=== PATIENT | female | born 1995 | race Caucasian/White ===

== ENCOUNTER 2016-12-07 11:05 | Inpatient (IN) | payer BC, OTHER ==
[~2016-12-07] VITALS: Ht 167.6 cm; Wt 134.2 kg
[~2016-12-07 11:05] MED LIST: MULT20CH PO; NCDT14 TD; ONDA4TAB46 PO
--- NOTE | 2016-12-07 11:27 | EMERGENCY ROOM VISIT NOTE ---
History Report prepared by Griselda: Ana Barajas Under the Supervision of: Dr. Chuy Espinosa M.D. First contact with patient: 11:23 Chief Complaint: FLU LIKE SX Stated Complaint: FEVER,COUGH,VOMITTING,RIB PAIN FROM COUGHING History of Present Illness The patient is a 21 year old female who presents to the Emergency Room with complaints of worsening flu like symptoms beginning 2 days prior to arrival. The patient states that 2 days ago she developed a cough. Yesterday the patient began to experience nausea, vomiting and fever. She also note an aching pain to her ribs. The patient last night developed discharge from her eyes bilaterally. She has been using her rescue inhaler. The patient denies diabetes history or swelling to lower extremities. The patient has a history of asthma and high blood pressure. Source of History: patient Onset: 2 days OFFICE DIRECTOR Position: other (global) Quality: other (flu like symptoms) Timing: worsening Associated Symptoms: + fevers, + cough, + nausea, + vomiting Note: The patient is experiencing aching pain to ribs and discharge from bilateral eyes. Review of Systems See HPI for pertinent positives & negatives. A total of 10 systems reviewed and were otherwise negative. Past Medical & Surgical Medical Problems: (1) Morbid obesity (2) Oligohydramnios antepartum (3) labor Family History Patient reports no known family medical history. Social History Smoking Status: Current Every Day Smoker Marital Status: single Occupation Status: employed Current/Historical Medications Scheduled Multiple Vitamins W/ Minerals (Adult One Daily Gummies), 1 TAB PO DAILY Scheduled PRN Albuterol Sulfate (Proair Respiclick), 1 PUFF INH DAILY PRN for Shortness of Breath Allergies Coded Allergies: Amoxicillin (Verified Allergy, Intermediate, RASH, 12/07/16) Physical Exam Vital Signs Date Time Temp Pulse Resp B/P (MAP) Pulse Ox O2 Delivery O2 Flow Rate FiO2 12/07/16 15:10 84 15 94 12/07/16 15:00 122/66 12/07/16 14:40 80 26 94 12/07/16 14:30 98/51 12/07/16 14:14 109/51 12/07/16 14:10 76 25 92 12/07/16 14:05 79 25 90 12/07/16 13:35 78 22 95 12/07/16 13:34 90 Room Air 12/07/16 13:34 95 Nasal Cannula 2.0 12/07/16 13:33 80 24 90/51 95 Nasal Cannula 2.0 12/07/16 13:31 80 12/07/16 13:27 90/51 12/07/16 13:00 36.6 94 22 84/64 91 12/07/16 11:09 36.8 109 18 136/87 96 Room Air Physical Exam GENERAL: Patient is uncomfortable appearing and in mild distress. HEENT: No acute trauma, normocephalic atraumatic, mucous membranes moist, nasal congestion, running noise, horse voice, no scleral icterus, conjunctivitis. NECK: No stridor, no adenopathy, no meningismus, trachea is midline. LUNGS: Mild wheezing throughout although good breath sounds bilaterally. HEART: Regular rate and rhythm. No murmurs, rubs, gallops appreciated. ABDOMEN: Soft, nontender, bowel sounds positive, no masses appreciated, no peritonitis. BACK: No midline tenderness, no CVA tenderness EXTREMITIES: Normal motion all extremities, no cyanosis, no edema. NEUROLOGIC: Alert and oriented, no acute motor or sensory deficits, no focal weakness, cranial nerves grossly intact. SKIN: No rash, no jaundice, no diaphoresis. Medical Decision & Procedures ER Provider Diagnostic Interpretation: X ray results are stated below per my interpretation and the radiologist's interpretation. CHEST ONE VIEW PORTABLE CLINICAL HISTORY: cough, chills dyspnea COMPARISON STUDY: 11/02/2010 FINDINGS: Minimal parenchymal infiltrate left base. Lungs otherwise appear clear. Diaphragms smooth. IMPRESSION: Minimal parenchymal infiltrate left lower lobe Electronically signed by: Ricardo Mejia M.D. 12/07/2016 12:04 PM Dictated Date/Time: 12/07/2016 12:04 PM Laboratory Results 12/07/16 12:05 Red Blood Count 4.42, Mean Corpuscular Volume 92.1, Mean Corpuscular Hemoglobin 31.2, Mean Corpuscular Hemoglobin Concent 33.9, Mean Platelet Volume 9.9, Neutrophils (%) (Auto) 64.6, Lymphocytes (%) (Auto) 22.3, Monocytes (%) (Auto) 12.3, Eosinophils (%) (Auto) 0.5, Basophils (%) (Auto) 0.2, Neutrophils # (Auto ) 5.22, Lymphocytes # (Auto) 1.81, Monocytes # (Auto) 1.00, Eosinophils # (Auto ) 0.04, Basophils # (Auto) 0.02 12/07/16 12:05 Test 12/07/16 12:05 12/07/16 15:18 White Blood Count 8.10 K/uL (4.8-10.8) Red Blood Count 4.42 M/uL (4.2-5.4) Hemoglobin 13.8 g/dL (12.0-16.0) Hematocrit 40.7 % (37-47) Mean Corpuscular Volume 92.1 fL (80-100) Mean Corpuscular Hemoglobin 31.2 pg (25-34) Mean Corpuscular Hemoglobin Concent 33.9 g/dl (32-36) Platelet Count 212 K/uL (130-400) Mean Platelet Volume 9.9 fL (7.4-10.4) Neutrophils (%) (Auto) 64.6 % Lymphocytes (%) (Auto) 22.3 % Monocytes (%) (Auto) 12.3 % Eosinophils (%) (Auto) 0.5 % Basophils (%) (Auto) 0.2 % Neutrophils # (Auto) 5.22 K/uL (1.4-6.5) Lymphocytes # (Auto) 1.81 K/uL (1.2-3.4) Monocytes # (Auto) 1.00 K/uL (0.11-0.59) Eosinophils # (Auto) 0.04 K/uL (0-0.5) Basophils # (Auto) 0.02 K/uL (0-0.2) RDW Standard Deviation 44.7 fL (36.4-46.3) RDW Coefficient of Variation 13.4 % (11.5-14.5) Immature Granulocyte % (Auto) 0.1 % Immature Granulocyte # (Auto) 0.01 K/uL (0.00-0.02) Anion Gap 9.0 mmol/L (3-11) Est Creatinine Clear Calc Drug Dose 156.5 ml/min Estimated GFR () 120.4 Estimated GFR (Non- 103.9 BUN/Creatinine Ratio 11.9 (10-20) Calcium Level 8.8 mg/dl (8.5-10.1) Total Bilirubin 0.5 mg/dl (0.2-1) Aspartate Amino Transf (AST/SGOT) 12 U/L (15-37) Alanine Aminotransferase (ALT/SGPT) 19 U/L (12-78) Alkaline Phosphatase 83 U/L (45-117) Total Protein 7.7 gm/dl (6.4-8.2) Albumin 3.9 gm/dl (3.4-5.0) Globulin 3.8 gm/dl (2.5-4.0) Albumin/Globulin Ratio 1.0 (0.9-2) Laboratory results as reviewed by me. Medications Administered Medications (Trade) Dose Ordered Sig/Dung Route Start Time Stop Time Status Last Admin Dose Admin Dexamethasone Sodium Phosphate (Decadron Inj) 10 mg NOW ONCE IV 12/07/16 11:30 12/07/16 11:31 DC 12/07/16 11:48 10 MG Hydrocodone Bit/ Homatropine Methylb (Hycodan Syrup) 5 ml NOW STAT PO 12/07/16 11:28 12/07/16 11:30 DC 12/07/16 11:47 5 ML Diphenhydramine HCl (Benadryl Inj) 50 mg NOW STAT IV 12/07/16 11:28 12/07/16 11:30 DC 12/07/16 11:45 50 MG Ketorolac Tromethamine (Toradol Inj) 30 mg NOW STAT IV 12/07/16 11:28 12/07/16 11:30 DC 12/07/16 11:46 30 MG Ondansetron HCl (Zofran Inj) 4 mg NOW STAT IV 12/07/16 11:28 12/07/16 11:31 DC 12/07/16 11:47 4 MG Sodium Chloride 1,000 ml @ 999 mls/hr Q1H1M STAT IV 12/07/16 11:28 12/07/16 12:28 DC 12/07/16 11:47 999 MLS/HR Sodium Chloride 2,000 ml @ 999 mls/hr Q2H1M STAT IV 12/07/16 13:12 12/07/16 15:12 DC 12/07/16 13:32 999 MLS/HR Levofloxacin (Levaquin / D5W) 750 mg NOW STAT IV 12/07/16 13:15 12/07/16 13:16 DC 12/07/16 13:50 750 MG Aztreonam 2000 mg/ Dextrose 110 ml @ 100 mls/hr NOW STAT IV 12/07/16 13:15 12/07/16 14:20 DC 12/07/16 14:19 100 MLS/HR ED Course 1124: The patient was evaluated in room C4. A complete history and physical exam was performed. 1128: Sodium Chloride 1,000 ml @ 999 mls/hr IV, Zofran Inj 4 mg IV, Toradol Inj 30 mg IV, Benadryl Inj 50 mg IV, Hycodan Syrup 5 ml PO, Decadron Inj 10 mg IV. 1313: The patient is now hypotensive on repeat blood pressure. 1315: Aztreonam 2,000 mg/ Dextrose 110 ml @ 100 mls/hr IV, Levaquin / D5W 750 mg IV. 1317: I asked nurse to obtain 2 IVs and give another liter of fluids. 1442: Discussed the patient's case with Dr. Coleen Cabezas [facility] [place]. The patient will be evaluated for further treatment and disposition. 1450: Upon reevaluation, the patient is hemodynamically stable. Discussed results and treatment plan with the patient. She verbalized understanding and agreement with the treatment plan. The patient will be evaluated for further management. Medical Decision Differential: Viral, Pharyngitis, Cellulitis, Pneumonia, Influenza, Meningitis, Sepsis, Bacteremia, UTI/Pyelonephritis, Endocrine, Toxicologic, amongst other pathologies entertained. Medication Reconciliation: I attest that I have personally reviewed the patient 's current medication list. Blood pressure screening: Patient was found to have mildly elevated blood pressure and was referred to their primary doctor for recheck and further treatment. Pleasant 21 yr old female arrives with generalized illness including respiratory , HEENT, and vomiting. Wheezing throughout, dehydrated and uncomfortable appearing. Given IV fluids, cough meds, nausea meds, steroids and nebulizer. CXR with LLL infiltrate. Feeling a bit better though BP starting to drop. Multiple repeat BPs confirm that she is hypotensive in 80s. O2 sats in low 90s. Blood cultures obtained, 2 IVs obtained. Lactic Acid looks good. Given Further 2 L NSS bolus along with empiric broad spectrum abx Levaquin and Aztreonam. BP mildly improved though I do not feel she is safe for discharge. Requested hospitalist evaluate patient for further work-up and treatment. Consults Time Called: 1440 Consulting Physician: Dr. Horne - [facility] [place] Returned Call: [phone] Discussed the patient's case. The patient will be evaluated for further treatment and disposition. Impression Primary Impression: Pneumonia Additional Impressions: Sepsis Hypotension Scribe Attestation The scribe's documentation has been prepared under my direction and personally reviewed by me in its entirety. I confirm that the note above accurately reflects all work, treatment, procedures, and medical decision making performed by me. Departure Information Dispostion Being Evaluated By Hospitalist Referrals No Doctor, Assigned (PCP) Problem Qualifiers
[2016-12-07] MEDS ORDERED: HYDROCODONE/HOMATROPINE SYRUP 5MG/1.5MG 5ML UDP PO STA (11:28)
[2016-12-07] MEDS ORDERED: ONDANSETRON INJ 2 MG/ML 2 ML VIAL IV STA (11:28)
[2016-12-07] MEDS ORDERED: DiphenhydrAMINE HCL 50 MG/ML VIAL IV STA (11:28)
[2016-12-07] MEDS ORDERED: SODIUM CHLORIDE 0.9% 1000ML 1,000 ML IV STA (11:28)
[2016-12-07] MEDS ORDERED: KETOROLAC TROMETHAMINE 30 MG/ML VIAL IV STA (11:28)
[2016-12-07] MEDS ORDERED: DEXAMETHASONE SOD INJ 10 MG/ML VIAL IV ONE (11:30)
[2016-12-07] MEDS ORDERED: ALBU18002 INH (12:04)
--- NOTE | 2016-12-07 12:06 | DIAGNOSTIC IMAGING REPORT ---
CHEST ONE VIEW PORTABLE CLINICAL HISTORY: cough, chills dyspnea COMPARISON STUDY: 11/02/2010 FINDINGS: Minimal parenchymal infiltrate left base. Lungs otherwise appear clear. Diaphragms smooth. IMPRESSION: Minimal parenchymal infiltrate left lower lobe Electronically signed by: Ricardo Mejia M.D. 12/07/2016 12:04 PM Dictated Date/Time: 12/07/2016 12:04 PM
[2016-12-07 12:51] LABS: BASO % 0.2 %; BASO ABS # 0.02 K/uL (0-0.2); COMPLETE YES; EOS % 0.5 %; HEMATOCRIT 40.7 % (37-47); IG% 0.1 %; LYMPH % 22.3 %; LYMPH ABS # 1.81 K/uL (1.2-3.4); MEAN CELL VOLUME 92.1 fL (80-100); MEAN CORPUSCULAR HEMOGLOBIN 31.2 pg (25-34); MEAN CORPUSCULAR HGB CONC 33.9 g/dl (32-36); MEAN PLATELET VOLUME 9.9 fL (7.4-10.4); MONO % 12.3 %; NEUT % 64.6 %; PLATELET COUNT 212 K/uL (130-400); RED BLOOD COUNT 4.42 M/uL (4.2-5.4)
[2016-12-07 13:10] LABS: BUN/CREATININE RATIO 11.9 (10-20); CALCIUM 8.8 mg/dl (8.5-10.1); CREATININE 0.8 mg/dl (0.60-1.20)
[2016-12-07] MEDS ORDERED: SODIUM CHLORIDE 0.9% 1000ML 2,000 ML IV STA (13:12)
[2016-12-07] MEDS ORDERED: AZTREONAM IV 2,000 MG in DEXTROSE 5% 100ML 100 ML IV STA (13:15)
[2016-12-07] MEDS ORDERED: LEVAQUIN 750MG / 150ML D5W IV STA (13:15)
[2016-12-07] MEDS ORDERED: TOBRAMYCIN SULF INJ 0 MG in DEXTROSE 5% 100ML 100 ML IV STA (15:18)
[2016-12-07] MEDS ORDERED: MAGNESIUM HYDROXIDE SUSP 30 ML UDC PO PRN (15:30)
[2016-12-07] MEDS ORDERED: ALUMINUM/MAGNESIUM/SIMETH (MAALOX MAX) 30 ML UDC PO PRN (15:30)
[2016-12-07] MEDS ORDERED: ALBUTEROL HFA 8 GM INHALER INH PRN (15:30)
[2016-12-07] MEDS ORDERED: ONDANSETRON INJ 2 MG/ML 2 ML VIAL IV PRN (15:30)
[2016-12-07] MEDS ORDERED: ACETAMINOPHEN 325 MG TAB PO PRN (15:30)
--- NOTE | 2016-12-07 15:39 | History and Physical ---
History & Physical Date & Time of Service: Dec 07, 2016 at 15:34 Chief Complaint: Fever,Cough,Vomitting,Rib Pain From Coughing Primary Care Physician: [facility] History of Present Illness Source: patient 21F with a PMHx of smoking (1 pack per day x 7 years) p/w severe cough x 2 days. Pt reports that her symptoms started with a sore throat 5 days ago and now she has sputum with increased SOB. She also has been vomiting and having diarrhea yesterday. The vomit is not related to coughing. She lives with her step dad, mom, sister and two children. She states that her mom is also having diarrhea and her sister is feeling sick today as well. She has been using her inhaler very regularly over the past two days without improvement. ROS: +feeling hot +diarrhea +cough +eating less , no abdo pain, +ear feels stuffy PMHx: Asthma PSHx: None Allergies: NKDA Meds: Albuterol SHx: two kids, lives in a trailer with air conditioning, with step mom, mom, sister and two children ages 1 and 3. Regular diet. Family History Patient reports no known family medical history. Social History Smoking Status: Current Every Day Smoker Marital Status: single Housing status: lives with family Occupational Status: employed Multi-Drug Resistant Organisms History of MDRO: No Allergies Coded Allergies: Amoxicillin (Verified Allergy, Intermediate, RASH, 12/07/16) Home Medications Scheduled Multiple Vitamins W/ Minerals (Adult One Daily Gummies), 1 TAB PO DAILY Scheduled PRN Albuterol Sulfate (Proair Respiclick), 1 PUFF INH DAILY PRN for Shortness of Breath Physical Exam Vital Signs Date Time Temp Pulse Resp B/P (MAP) Pulse Ox O2 Delivery O2 Flow Rate FiO2 12/07/16 15:10 84 15 94 12/07/16 15:00 122/66 12/07/16 14:40 80 26 94 12/07/16 14:30 98/51 12/07/16 14:14 109/51 12/07/16 14:10 76 25 92 12/07/16 14:05 79 25 90 12/07/16 13:35 78 22 95 12/07/16 13:34 90 Room Air 12/07/16 13:34 95 Nasal Cannula 2.0 12/07/16 13:33 80 24 90/51 95 Nasal Cannula 2.0 12/07/16 13:31 80 12/07/16 13:27 90/51 12/07/16 13:00 36.6 94 22 84/64 91 12/07/16 11:09 36.8 109 18 136/87 96 Room Air General Appearance: WD/WN, + obese, + pertinent finding (pt is wearing oxygen) Respiratory/Chest: chest non-tender, no respiratory distress, no accessory muscle use, + pertinent finding (wheezing in the upper lung field bilaterally, crackles in the LLL. ) Cardiovascular: no edema, no gallop, no JVD, no murmur, normal peripheral pulses Abdomen/GI: non tender, soft, no organomegaly, no pulsatile mass Extremities/Musculoskelatal: normal inspection, no calf tenderness, normal capillary refill, no pedal edema, normal range of motion Neurologic/Psych: normal mood/affect, normal reflexes, oriented x 3 Skin: no rash Diagnostics Laboratory Results Results Past 24 Hours Test 12/07/16 12:05 12/07/16 15:18 Range/Units White Blood Count 8.10 4.8-10.8 K/uL Red Blood Count 4.42 4.2-5.4 M/uL Hemoglobin 13.8 12.0-16.0 g/dL Hematocrit 40.7 37-47 % Mean Corpuscular Volume 92.1 80-100 fL Mean Corpuscular Hemoglobin 31.2 25-34 pg Mean Corpuscular Hemoglobin Concent 33.9 32-36 g/dl Platelet Count 212 130-400 K/uL Mean Platelet Volume 9.9 7.4-10.4 fL Neutrophils (%) (Auto) 64.6 % Lymphocytes (%) (Auto) 22.3 % Monocytes (%) (Auto) 12.3 % Eosinophils (%) (Auto) 0.5 % Basophils (%) (Auto) 0.2 % Neutrophils # (Auto) 5.22 1.4-6.5 K/uL Lymphocytes # (Auto) 1.81 1.2-3.4 K/uL Monocytes # (Auto) 1.00 0.11-0.59 K/uL Eosinophils # (Auto) 0.04 0-0.5 K/uL Basophils # (Auto) 0.02 0-0.2 K/uL RDW Standard Deviation 44.7 36.4-46.3 fL RDW Coefficient of Variation 13.4 11.5-14.5 % Immature Granulocyte % (Auto) 0.1 % Immature Granulocyte # (Auto) 0.01 0.00-0.02 K/uL Sodium Level 141 136-145 mmol/L Potassium Level 3.0 3.5-5.1 mmol/L Chloride Level 106 98-107 mmol/L Carbon Dioxide Level 26 21-32 mmol/L Anion Gap 9.0 3-11 mmol/L Blood Urea Nitrogen 10 7-18 mg/dl Creatinine 0.80 0.60-1.20 mg/dl Est Creatinine Clear Calc Drug Dose 156.5 ml/min Estimated GFR () 120.4 Estimated GFR (Non- 103.9 BUN/Creatinine Ratio 11.9 10-20 Random Glucose 104 70-99 mg/dl Calcium Level 8.8 8.5-10.1 mg/dl Total Bilirubin 0.5 0.2-1 mg/dl Aspartate Amino Transf (AST/SGOT) 12 15-37 U/L Alanine Aminotransferase (ALT/SGPT) 19 12-78 U/L Alkaline Phosphatase 83 45-117 U/L Total Protein 7.7 6.4-8.2 gm/dl Albumin 3.9 3.4-5.0 gm/dl Globulin 3.8 2.5-4.0 gm/dl Albumin/Globulin Ratio 1.0 0.9-2 Microbiology Results 12/07/16 Blood Culture, Received Pending 12/07/16 Blood Culture, Received Pending Diagnostic Radiology CHEST ONE VIEW PORTABLE CLINICAL HISTORY: cough, chills dyspnea COMPARISON STUDY: 11/02/2010 FINDINGS: Minimal parenchymal infiltrate left base. Lungs otherwise appear clear. Diaphragms smooth. IMPRESSION: Minimal parenchymal infiltrate left lower lobe Impression Assessment and Plan 21F with a PMHx of Asthma and smoking presents with SOB. Chest x-ray showed LLL consolidation. Admitted for pneumonia. In the ER pt received NSS bolus of 1L, Zofran , Toradol 30mg IV, Benadryl IV 50mg IV, Hycodan syrup 5mL PO, and Decadron 10mg IV. LLL Pneumonia, unlikely septic, more likely dehydrated - Levofloxacin 750mg Q24H. - Ordered Lactate now and in 8 hours, follow up. - Follow up blood cultures. - CBC and BMP tomorrow AM. Acute Hypoxic Respiratory Failure 2/2 Asthma, likely a component of COPD - Wheezing on Exam. - Albuterol q4 prn for wheezing. - Duonebs q3H scheduled - Solu Medrol 40mg IV Q12 Diarrhea - Because other members in family have symptoms, lives in a trailer with , ordering Legionella urine Antigen screen. Hypotension NSS 125mls/hr +20meq as above Hypokalemia 10meq KCL given, IVF as above, BMP tomorrow morning. Continue to monitor. Smoking: Nicotine patch, smoking cessation consult. Dispo: Med Surg, full admit, reg diet. Code: Full I personally and independently interviewed and examined the patient I reviewed labs and imaging I agree with above mentioned physical exam, History and ROS I discussed and formulated the assessment and plan with Mrs. España 21-year-old female p/w LLLP ROS is negative except for cough/fever PE , obese , not in distress lungs decreased air entry/rhonchi left lung , Heart Soft systolic M Abd soft NT Ext no edema Neuro AAA X 3 moves all ext assessment: Left lower lobe pneumonia hypoxic respiratory failure, acute cough PCN allergy Plan: levofloxacin O2 supplement rapid flu [facility] [place] Hospitalist VTE Prophylaxis VTE Risk Assessment Done? Y/N: Yes Risk Level: Low Resident Involvement: Resident Care Provided Care Provided: Adult Hospital Medicine
--- NOTE | 2016-12-07 16:18 | Medical Student: [facility] ---
Med Student History & Physical Date & Time of Service: Dec 07, 2016 at 15:55 Chief Complaint: Fever,Cough,Vomitting,Rib Pain From Coughing Primary Care Physician: [facility] History of Present Illness Source: patient Ms. Grove is a 21yo female who presented to the ED with a three day history of illness. It began with a sore throat and has progressed to fever (max of 102), congestion with productive cough, nausea with significant vomiting (>10 episodes ), and diarrhea. She has been unable to eat or drink fluids. She has also been experiencing headaches, dizziness, and shortness of breath. Three of the six members of her household have also been sick, but not as severe as her. Past Medical/Surgical History Medical Problems: (1) Hypotension Status: Acute (2) Pneumonia Status: Acute (3) Sepsis Status: Acute Past medical history: HTN migraines asthma bipolar disorder depression Past surgical history: tonsils and adenoids removed Family History Grandfather: HTN Social History Smoking Status: Current Every Day Smoker (5-10 pack-year) Smokeless Tobacco Use: No Alcohol Use: none Marital Status: single Housing status: lives with family (mother, step-father, and two children) Occupational Status: employed (works at [email or web address]) Allergies Coded Allergies: Amoxicillin (Verified Allergy, Intermediate, RASH, 12/07/16) Medications Albuterol Sulfate (Proair Respiclick), 1 PUFF INH DAILY PRN for Shortness of Breath Multiple Vitamins W/ Minerals (Adult One Daily Gummies), 1 TAB PO DAILY Review of Systems Constitutional: + fever, + weakness, + fatigue Eyes: + discharge (right eye) ENT: + hearing loss (acute right ear hearing impairment (started with onset of current illness)) Respiratory: + cough, + sputum, + shortness of breath Cardiovascular: No chest pain, No edema Abdomen: + pain (abdominal pain from coughing ), + nausea, + vomiting, + diarrhea Musculoskeletal: + muscle pain Neurologic: No memory loss, No paralysis, No numbness/tingling, No vertigo Integumentary: No rash Physical Exam Vital Signs (24 Hours) Date Time Temp Pulse Resp B/P (MAP) Pulse Ox O2 Delivery O2 Flow Rate FiO2 12/07/16 15:10 84 15 94 12/07/16 15:00 122/66 12/07/16 14:40 80 26 94 12/07/16 14:30 98/51 12/07/16 14:14 109/51 12/07/16 14:10 76 25 92 12/07/16 14:05 79 25 90 12/07/16 13:35 78 22 95 12/07/16 13:34 90 Room Air 12/07/16 13:34 95 Nasal Cannula 2.0 12/07/16 13:33 80 24 90/51 95 Nasal Cannula 2.0 12/07/16 13:31 80 12/07/16 13:27 90/51 12/07/16 13:00 36.6 94 22 84/64 91 12/07/16 11:09 36.8 109 18 136/87 96 Room Air General Appearance: WD/WN, + obese Head: normocephalic, atraumatic Eyes: normal inspection, PERRL ENT: + nasal congestion, + TM dull (right TM opaque ) Neck: no adenopathy Respiratory/Chest: + crackles (left inferior lobe crackles) Cardiovascular: regular rate, rhythm, no edema Extremities/Musculoskelatal: normal inspection, normal capillary refill Neurologic/Psych: alert, normal mood/affect, oriented x 3 Skin: normal color, warm/dry, no rash Diagnostics Laboratory Results Results Past 24 Hours Test 12/07/16 12:05 12/07/16 15:18 Range/Units White Blood Count 8.10 4.8-10.8 K/uL Red Blood Count 4.42 4.2-5.4 M/uL Hemoglobin 13.8 12.0-16.0 g/dL Hematocrit 40.7 37-47 % Mean Corpuscular Volume 92.1 80-100 fL Mean Corpuscular Hemoglobin 31.2 25-34 pg Mean Corpuscular Hemoglobin Concent 33.9 32-36 g/dl Platelet Count 212 130-400 K/uL Mean Platelet Volume 9.9 7.4-10.4 fL Neutrophils (%) (Auto) 64.6 % Lymphocytes (%) (Auto) 22.3 % Monocytes (%) (Auto) 12.3 % Eosinophils (%) (Auto) 0.5 % Basophils (%) (Auto) 0.2 % Neutrophils # (Auto) 5.22 1.4-6.5 K/uL Lymphocytes # (Auto) 1.81 1.2-3.4 K/uL Monocytes # (Auto) 1.00 0.11-0.59 K/uL Eosinophils # (Auto) 0.04 0-0.5 K/uL Basophils # (Auto) 0.02 0-0.2 K/uL RDW Standard Deviation 44.7 36.4-46.3 fL RDW Coefficient of Variation 13.4 11.5-14.5 % Immature Granulocyte % (Auto) 0.1 % Immature Granulocyte # (Auto) 0.01 0.00-0.02 K/uL Sodium Level 141 136-145 mmol/L Potassium Level 3.0 3.5-5.1 mmol/L Chloride Level 106 98-107 mmol/L Carbon Dioxide Level 26 21-32 mmol/L Anion Gap 9.0 3-11 mmol/L Blood Urea Nitrogen 10 7-18 mg/dl Creatinine 0.80 0.60-1.20 mg/dl Est Creatinine Clear Calc Drug Dose 156.5 ml/min Estimated GFR () 120.4 Estimated GFR (Non- 103.9 BUN/Creatinine Ratio 11.9 10-20 Random Glucose 104 70-99 mg/dl Calcium Level 8.8 8.5-10.1 mg/dl Total Bilirubin 0.5 0.2-1 mg/dl Aspartate Amino Transf (AST/SGOT) 12 15-37 U/L Alanine Aminotransferase (ALT/SGPT) 19 12-78 U/L Alkaline Phosphatase 83 45-117 U/L Total Protein 7.7 6.4-8.2 gm/dl Albumin 3.9 3.4-5.0 gm/dl Globulin 3.8 2.5-4.0 gm/dl Albumin/Globulin Ratio 1.0 0.9-2 Microbiology Results 12/07/16 Blood Culture, Received Pending 12/07/16 Blood Culture, Received Pending Impression Assessment and Plan 21 yo female with asthma and 5-10 pack-year history of smoking presents with significant acute respiratory and GI distress; coupled with hypotension poses concern for sepsis. Left inferior lobe PNA CXR shows minimal parenchymal infiltrate left lower lobe. will collect sputum sample for culture and blood culture will start patient on the following Abxs: levaquin 750mg Q8H IV aztreonam 2000mg Q8H IV Asthma/hypoxia-- pulse ox dropped as low as 90% albuterol PRN methylprednisolone 40mg Q12H albuterol + ipratropium Q6H neb treatment Hypotension-- there was concerns for sepsis given respiratory infection and significant hypotension. At the time I saw the patient she had been in the ED for several hours and her BP readings had stabilized; she did not appear septic. Her hypotension can most likely be attributed to severe dehydration ( from diarrhea, vomiting, and lack of fluid intake). Hypokalemia-- most likely due to diarrhea. will start KCl IV DVT Prophylaxis enoxaparin (Lovenox) SQ Social Service Consult None Apply
[2016-12-07] MEDS ORDERED: POLYETHYLENE (MIRALAX) 17 GM PACK PO PRN (16:30)
[2016-12-07 16:36] VITALS: BP_SYST 124; BP_SYST 90; BP_DIAS 47; BP_DIAS 78; PULSE 76; TEMP 36.7; O2SAT 96
[2016-12-07] MEDS ORDERED: POTASSIUM CHLORIDE 10 MEQ TABCR PO ONE (17:30)
[2016-12-07 17:34] LABS: INR 1.1 (0.9-1.1); PROTHROMBIN TIME (PATIENT) 11.5 SECONDS (9.0-12.0)
[2016-12-07] MEDS: NSS + 20MEQ KCL 1000ML 1,000 ML IV SCH (17:59)
[2016-12-07] MEDS ORDERED: METHYLPREDNISOLONE IV 60 MG in SYRINGE 0 ML IV SCH (18:00)
[2016-12-07 18:43] VITALS: BP 124/78; PULSE 76; TEMP 36.7; O2SAT 96; Ht 167.6 cm; Wt 134.2 kg
[2016-12-07] MEDS: ALBUT/IPRATROP 3MG/0.5MG NEB 3 ML VIAL NEB SCH ×2 (19:28→23:21)
[2016-12-07] MEDS: FORMOTEROL FUMA NEBULIZER SOLN 20 MCG/2 ML VIAL INH SCH (19:28)
[2016-12-07 19:29] VITALS: PULSE 91; O2SAT 95
[2016-12-07] MEDS ORDERED: PNEUMOCOCCAL POLYSACCHARIDES 25 MCG/0.5 ML VIAL/SYR IM. ONE (21:00)
[2016-12-07] MEDS ORDERED: PNEUMOCOCCAL ADMINISTRATION CHARGE ONE (21:00)
[2016-12-07] MEDS: METHYLPREDNISOLONE IV 40 MG in SYRINGE 0 ML IV SCH (21:18)
[2016-12-07] MEDS ORDERED: AZTREONAM IV 2,000 MG in DEXTROSE 5% 100ML 100 ML IV SCH (22:00)
[2016-12-07] MEDS ORDERED: ENOXAPARIN 40 MG/0.4 ML SYR SQ SCH (22:00)
[2016-12-07 23:21] VITALS: PULSE 81; O2SAT 93
[2016-12-07 23:24] VITALS: BP 117/72; PULSE 81; TEMP 36.9; O2SAT 92
[2016-12-08] MEDS: NSS + 20MEQ KCL 1000ML 1,000 ML IV SCH ×3 (00:43→15:41)
[2016-12-08] MEDS: ALBUT/IPRATROP 3MG/0.5MG NEB 3 ML VIAL NEB SCH ×4 (01:41→19:42)
[2016-12-08 04:12] VITALS: BP 133/70; PULSE 72; TEMP 36.7; O2SAT 92
[2016-12-08 07:13] VITALS: BP 128/85; PULSE 71; TEMP 36.4; O2SAT 96
[2016-12-08 07:28] LABS: HEMATOCRIT 37.5 % (37-47); MEAN CELL VOLUME 91.7 fL (80-100); MEAN CORPUSCULAR HEMOGLOBIN 30.1 pg (25-34); MEAN CORPUSCULAR HGB CONC 32.8 g/dl (32-36); MEAN PLATELET VOLUME 9.9 fL (7.4-10.4); PLATELET COUNT 208 K/uL (130-400); RED BLOOD COUNT 4.09 M/uL (4.2-5.4)
[2016-12-08] MEDS: METHYLPREDNISOLONE IV 40 MG in SYRINGE 0 ML IV SCH (07:46)
[2016-12-08] MEDS: FORMOTEROL FUMA NEBULIZER SOLN 20 MCG/2 ML VIAL INH SCH ×2 (07:48→19:42)
[2016-12-08 07:49] VITALS: PULSE 75; O2SAT 95
[2016-12-08] MEDS ORDERED: NICOTINE 7 MG/24 HR TDSY TD SCH (08:00)
[2016-12-08 08:05] LABS: BLOOD UREA NITROGEN 7 mg/dl (7-18); BUN/CREATININE RATIO 16.7 (10-20); CARBON DIOXIDE 26 mmol/L (21-32); CHLORIDE 110 mmol/L (98-107); CREATININE 0.43 mg/dl (0.60-1.20); GLUCOSE 122 mg/dl (70-99); POTASSIUM 3.7 mmol/L (3.5-5.1); SODIUM 143 mmol/L (136-145)
--- NOTE | 2016-12-08 09:29 | Family Medicine Progress Note ---
Progress Note Date of Service Dec 08, 2016. Subjective Pt evaluation today including: conversation w/ patient, conversation w/ family Loraine was somewhat short of breath. She denied any worsening of her cough, fevers, chest pain, shortness of breath. She reports she has 2 kids at home and distress is what what makes her keep smoking. Her mother and stepfather also smoke in the house. She reports she feels detention motivated to start this sensation process. But does not feel confident she will be able to do it on her own. She reports she's tried in the past with nicotine patches and has been unsuccessful at this moment she does not want a nicotine patch. Additional Comments: Review of systems negative unless otherwise noted in history of present illness. Medications Current Inpatient Medications Medications (Trade) Dose Ordered Sig/Dung Route Start Time Stop Time Status Last Admin Dose Admin Enoxaparin Sodium (Lovenox Inj) 40 mg Q24H SQ 12/07/16 22:00 01/06/17 21:59 12/07/16 21:19 40 MG Acetaminophen (Tylenol Tab) 650 mg Q4H PRN PO 12/07/16 15:30 01/06/17 15:29 Al Hydrox/Mg Hydrox/Simethicone (Maalox Max Susp) 15 ml Q4H PRN PO 12/07/16 15:30 01/06/17 15:29 Magnesium Hydroxide (Milk Of Magnesia Susp) 30 ml Q6H PRN PO 12/07/16 15:30 01/06/17 15:29 Polyethylene (Miralax Powder Packet) 17 gm DAILY PRN PO 12/07/16 16:30 01/06/17 16:29 Ondansetron HCl (Zofran Inj) 4 mg Q6H PRN IV 12/07/16 15:30 01/06/17 15:29 Levofloxacin 750 mg/Prmx 150 ml @ 100 mls/hr Q24H IV 12/08/16 10:00 12/15/16 09:59 Formoterol Fumarate (Perforomist 20MCG/2ML Neb Soln) 20 mcg Q12R INH 12/07/16 20:00 01/06/17 19:59 12/08/16 07:48 20 MCG Albuterol (Ventolin Hfa Inhaler) 2 puffs Q4H PRN INH 12/07/16 15:30 01/06/17 15:29 12/08/16 02:52 2 PUFFS Albuterol/ Ipratropium (Duoneb) 3 ml Q6R NEB 12/07/16 21:00 01/06/17 20:59 12/07/16 23:21 3 ML Potassium Chloride/Sodium Chloride 1,000 ml @ 125 mls/hr Q8H IV 12/07/16 17:00 01/06/17 16:59 12/08/16 07:46 125 MLS/HR Methylprednisolone Sodium Succinate 40 mg/Syringe 0.64 ml @ 1.5 mls/min Q12 IV 12/07/16 21:00 01/06/17 17:59 12/08/16 07:46 1.5 MLS/MIN Nicotine (Nicoderm Cq 7 Mg Patch) 1 patch QAM TD 12/08/16 08:00 01/07/17 07:59 12/08/16 07:46 1 PATCH Miscellaneous (Remove Nicoderm Patch) 1 ea HS N/A 12/07/16 22:00 01/06/17 21:59 Objective Vital Signs Date Time Temp Pulse Resp B/P (MAP) Pulse Ox O2 Delivery O2 Flow Rate FiO2 12/08/16 08:00 Room Air 12/08/16 07:49 75 18 95 Room Air 12/08/16 07:13 36.4 71 16 128/85 (99) 96 Room Air 12/08/16 04:12 36.7 72 20 133/70 (91) 92 2.0 12/07/16 23:24 36.9 81 20 117/72 (87) 92 Room Air 12/07/16 23:21 81 22 93 Room Air 12/07/16 19:29 91 20 95 Nasal Cannula 2.0 12/07/16 18:43 36.7 76 26 124/78 96 Nasal Cannula 2.0 12/07/16 16:36 36.7 76 26 90/47 (61) 96 Nasal Cannula 2.0 124/78 (93) 12/07/16 16:00 127/83 12/07/16 15:45 78 27 95 12/07/16 15:30 113/64 12/07/16 15:15 85 14 95 12/07/16 15:10 84 15 94 12/07/16 15:00 122/66 12/07/16 14:40 80 26 94 12/07/16 14:30 98/51 12/07/16 14:14 109/51 12/07/16 14:10 76 25 92 12/07/16 14:05 79 25 90 12/07/16 13:35 78 22 95 12/07/16 13:34 90 Room Air 12/07/16 13:34 95 Nasal Cannula 2.0 12/07/16 13:33 80 24 90/51 95 Nasal Cannula 2.0 12/07/16 13:31 80 12/07/16 13:27 90/51 12/07/16 13:00 36.6 94 22 84/64 91 12/07/16 11:09 36.8 109 18 136/87 96 Room Air Physical Exam General Appearance: WD/WN, no apparent distress, + obese Eyes: normal inspection, PERRL ENT: hearing grossly normal Neck: supple, no JVD Respiratory/Chest: + wheezing (diffuse wheeze) Cardiovascular: regular rate, rhythm, no murmur Abdomen: non tender, soft Extremities: non-tender Neurologic/Psychiatric: alert, normal mood/affect Skin: no rash Laboratory Results Last 24 Hours Test 12/07/16 12:05 12/07/16 12:15 12/07/16 13:35 12/07/16 16:36 White Blood Count 8.10 K/uL Red Blood Count 4.42 M/uL Hemoglobin 13.8 g/dL Hematocrit 40.7 % Mean Corpuscular Volume 92.1 fL Mean Corpuscular Hemoglobin 31.2 pg Mean Corpuscular Hemoglobin Concent 33.9 g/dl Platelet Count 212 K/uL Mean Platelet Volume 9.9 fL Neutrophils (%) (Auto) 64.6 % Lymphocytes (%) (Auto) 22.3 % Monocytes (%) (Auto) 12.3 % Eosinophils (%) (Auto) 0.5 % Basophils (%) (Auto) 0.2 % Neutrophils # (Auto) 5.22 K/uL Lymphocytes # (Auto) 1.81 K/uL Monocytes # (Auto) 1.00 K/uL Eosinophils # (Auto) 0.04 K/uL Basophils # (Auto) 0.02 K/uL RDW Standard Deviation 44.7 fL RDW Coefficient of Variation 13.4 % Immature Granulocyte % (Auto) 0.1 % Immature Granulocyte # (Auto) 0.01 K/uL Sodium Level 141 mmol/L Potassium Level 3.0 mmol/L Chloride Level 106 mmol/L Carbon Dioxide Level 26 mmol/L Anion Gap 9.0 mmol/L Blood Urea Nitrogen 10 mg/dl Creatinine 0.80 mg/dl Est Creatinine Clear Calc Drug Dose 156.5 ml/min Estimated GFR () 120.4 Estimated GFR (Non- 103.9 BUN/Creatinine Ratio 11.9 Random Glucose 104 mg/dl Calcium Level 8.8 mg/dl Total Bilirubin 0.5 mg/dl Aspartate Amino Transf (AST/SGOT) 12 U/L Alanine Aminotransferase (ALT/SGPT) 19 U/L Alkaline Phosphatase 83 U/L Total Protein 7.7 gm/dl Albumin 3.9 gm/dl Globulin 3.8 gm/dl Albumin/Globulin Ratio 1.0 Prothrombin Time 11.5 SECONDS Prothromb Time International Ratio 1.1 Bedside Lactic Acid Venous 0.55 mmol/L Lactic Acid Level 0.7 mmol/L Test 12/07/16 21:16 12/08/16 06:53 12/08/16 07:50 Lactic Acid Level 1.9 mmol/L White Blood Count 9.10 K/uL Red Blood Count 4.09 M/uL Hemoglobin 12.3 g/dL Hematocrit 37.5 % Mean Corpuscular Volume 91.7 fL Mean Corpuscular Hemoglobin 30.1 pg Mean Corpuscular Hemoglobin Concent 32.8 g/dl RDW Standard Deviation 44.3 fL RDW Coefficient of Variation 13.2 % Platelet Count 208 K/uL Mean Platelet Volume 9.9 fL Sodium Level 143 mmol/L Potassium Level 3.7 mmol/L Chloride Level 110 mmol/L Carbon Dioxide Level 26 mmol/L Anion Gap 7.0 mmol/L Blood Urea Nitrogen 7 mg/dl Creatinine 0.43 mg/dl Est Creatinine Clear Calc Drug Dose 286.7 ml/min Estimated GFR () > 150.0 Estimated GFR (Non- 143.4 BUN/Creatinine Ratio 16.7 Random Glucose 122 mg/dl Calcium Level 8.0 mg/dl Influenza Type A Antigen Neg for Influ A Influenza Type B Antigen Neg for Influ B Assessment and Plan 21-year-old female, with asthma, who actively smokes, presents with community- acquired pneumonia, day 2 of antibiotics (Levaquin). Community acquired pneumonia - We will continue Levaquin IV for now Acute hypoxic respiratory failure, secondary to community-acquired pneumonia - On 2L Nasal cannula - Wean as tolerated Asthma - Patient is not on any steroid inhalers on a regular basis, only uses a rescue inhaler when needed. - We will continue with DuoNeb's for now - Started on SoluMedrol 40mg q12h, will discuss changing to PO steroids Viral gastroenteritis - Resolved Smoking - Discussed smoking cessation, patient is not interested at this time. Hypokalemia, resolved - Continue to monitor Code status: Full Dispo: Med Surg VTE: Heparin Resident Physician Supervision Note: I was present with Dr. Aggarwal during the history and exam. I discussed the case with the resident and agree with the findings and plan as documented in the note. Any exceptions or clarifications are listed here: Upon my examination, the patient had expiratory wheezing in all power. She had good inspiratory effort and decent air exchange; I cannot appreciate any focal pulmonary findings. She remains afebrile without a white blood cell count. I suspect this is more of an asthma exacerbation, less likely a bacterial pneumonia. IMPRESSION 1) asthma exacerbation 2) infectious process less likely PLAN 1) repeat chest x-ray today. 2) she is received her IV Levaquin today. 3) change his steroids to oral. 4) continue nebulizer treatments. 5) given her diffuse wheezing, she is not ready for discharge yet. Documented By: Javier Arias Resident Tracking Resident Involvement: Resident Care Provided Care Provided: Adult Hospital Medicine
[2016-12-08] MEDS ORDERED: LEVOFLOXACIN / D5W 750 MG in PREMIXED IN D5W 150 ML IV SCH (10:00)
--- NOTE | 2016-12-08 11:33 | DIAGNOSTIC IMAGING REPORT ---
CHEST 2 VIEWS ROUTINE HISTORY: Pneumonia. Follow-up. COMPARISON: 12/07/2016. FINDINGS: There are low lung volumes. The heart is top normal in size. No pleural effusions. No pneumothorax. No focal lung consolidations to suggest pneumonia. No evidence for pulmonary edema. IMPRESSION: No acute process. Electronically signed by: aDrrius Turner M.D. 12/08/2016 11:32 AM Dictated Date/Time: 12/08/2016 11:30 AM
[2016-12-08 14:39] VITALS: PULSE 84; O2SAT 94
[2016-12-08 15:58] VITALS: BP 149/79; PULSE 91; TEMP 36.6; O2SAT 91
[2016-12-08 19:42] VITALS: PULSE 88; O2SAT 94
--- NOTE | 2016-12-08 21:00 | Progress Note ---
Progress Note Date of Service Dec 08, 2016. Progress Note Notified that patient requesting to sign out AMA. Requested nurse re-iterate to patient risk of being discharged AMA. If she persisted, I would be up to give patient prescriptions to at least hold over until she could see PCP. Notified 5 minutes later that patient had in fact left. Prescriptions were not given as patient no longer in the hospital. Per nurse, AMA form signed. Will notify primary team in the morning.
--- NOTE | 2016-12-09 00:21 | Medical Student: [facility] ---
Med Student Progress Note Date of Service Dec 08, 2016. Subjective Pt evaluation today including: conversation w/ patient Pain: none PO Intake: normal diet Voiding: no voiding problems Ms. Grove reports that she is feeling much better, but still has wheezing. She denies fever, chills, nausea, vomiting, and diarrhea. Review of Systems Constitutional: No fever, No chills, No sweats Eyes: No worsening of vision, No eye pain ENT: No sore throat Respiratory: + cough, + sputum, + wheezing Cardiac: No chest pain, No orthopnea, No edema Abdomen: No pain, No nausea, No vomiting, No diarrhea, No constipation Musculoskeletal: No joint pain Neurologic: No memory loss Skin: No rash Objective Vital Signs Date Time Temp Pulse Resp B/P (MAP) Pulse Ox O2 Delivery O2 Flow Rate FiO2 12/08/16 19:42 88 20 94 Room Air 12/08/16 15:58 36.6 91 20 149/79 (102) 91 Room Air 12/08/16 15:48 Room Air 12/08/16 14:39 84 18 94 Room Air 12/08/16 08:00 Room Air 12/08/16 07:49 75 18 95 Room Air 12/08/16 07:13 36.4 71 16 128/85 (99) 96 Room Air 12/08/16 04:12 36.7 72 20 133/70 (91) 92 2.0 Physical Exam General Appearance: WD/WN, + obese Eyes: bilateral eyes normal inspection, bilateral eyes PERRL, bilateral eyes EOMI ENT: normal ENT inspection, pharynx normal Neck: no adenopathy, thyroid normal Respiratory/Chest: + wheezing (b/l wheezing) Cardiovascular: regular rate, rhythm, no murmur Abdomen: normal bowel sounds Extremities: no pedal edema Neurologic/Psychiatric: alert, normal mood/affect, oriented x 3 Skin: normal color, no rash Laboratory Results Last 24 Hours Test 12/08/16 06:53 12/08/16 07:50 White Blood Count 9.10 K/uL Red Blood Count 4.09 M/uL Hemoglobin 12.3 g/dL Hematocrit 37.5 % Mean Corpuscular Volume 91.7 fL Mean Corpuscular Hemoglobin 30.1 pg Mean Corpuscular Hemoglobin Concent 32.8 g/dl RDW Standard Deviation 44.3 fL RDW Coefficient of Variation 13.2 % Platelet Count 208 K/uL Mean Platelet Volume 9.9 fL Sodium Level 143 mmol/L Potassium Level 3.7 mmol/L Chloride Level 110 mmol/L Carbon Dioxide Level 26 mmol/L Anion Gap 7.0 mmol/L Blood Urea Nitrogen 7 mg/dl Creatinine 0.43 mg/dl Est Creatinine Clear Calc Drug Dose 286.7 ml/min Estimated GFR () > 150.0 Estimated GFR (Non- 143.4 BUN/Creatinine Ratio 16.7 Random Glucose 122 mg/dl Calcium Level 8.0 mg/dl Influenza Type A Antigen Neg for Influ A Influenza Type B Antigen Neg for Influ B Assessment and Plan Assessment and Plan: 21 yo female with asthma and 5-10 pack-year history of smoking presents with asthma exacerbation and community acquired PNA. Community acquired PNA CXR shows minimal parenchymal infiltrate left lower lobe. levaquin 75mg PO for 12 more days Asthma exacerbation albuterol PRN methylprednisolone 40mg Q12H albuterol + ipratropium Q6H neb treatment Hypotension --resolved Hypokalemia --resolved
[2016-12-09 12:19] LABS: LEGIONELLA ANTIGEN NOT DETECTED (NOT DETECTED)
--- NOTE | 2016-12-09 17:53 | Discharge Summary ---
Discharge Summary Date of Service Dec 09, 2016. (Francia Aggarwal MD) Discharge Summary Admission Date: Dec 07, 2016 at 15:29 Discharge Date: Dec 08, 2016 Discharge Disposition: Home Principal Diagnosis: Asthma exacerbation Problems/Secondary Diagnoses: Pneumonia (ruled out) Procedures: CXR ON ARRIVAL: IMPRESSION: Minimal parenchymal infiltrate left lower lobe REPEAT CXR: CHEST 2 VIEWS ROUTINE HISTORY: Pneumonia. Follow-up. COMPARISON: 12/07/2016. FINDINGS: There are low lung volumes. The heart is top normal in size. No pleural effusions. No pneumothorax. No focal lung consolidations to suggest pneumonia. No evidence for pulmonary edema. IMPRESSION: No acute process. (Francia Aggarwal MD) Discharge Exam Patient left AMA on 12/08/16 around 9pm. Please refer to that day's Progress note for her ROS and physical exam. (Francia Aggarwal MD) Hospital Course HPI: 21F with a PMHx of smoking (1 pack per day x 7 years) p/w severe cough x 2 days. Pt reports that her symptoms started with a sore throat 5 days ago and now she has sputum with increased SOB. She also has been vomiting and having diarrhea yesterday. The vomit is not related to coughing. She lives with her step dad, mom, sister and two children. She states that her mom is also having diarrhea and her sister is feeling sick today as well. She has been using her inhaler very regularly over the past two days without improvement. HOSPITAL COURSE: 21-year-old female, with asthma, who actively smokes, presents with community- acquired pneumonia, day 2 of antibiotics (Levaquin). Community acquired pneumonia - Was given Levaquin and Aztreonam in ER - Was continued on Levaquin for 48 hours - Abx were going to be stopped after repeat CXR was clear. Acute hypoxic respiratory failure, secondary to community-acquired pneumonia - On 2L Nasal cannula - She had somewhat weaned her oxygen requirement throughout the day. It was strongly recommended the pt stop smoking but she was not interested at this time. Asthma - Patient is not on any steroid inhalers on a regular basis, only uses a rescue inhaler when needed. - DuoNebs provided during admission - Started on SoluMedrol 40mg q12h, we were going to switch to PO steroids but she had left Viral gastroenteritis - Resolved Smoking - Discussed smoking cessation, patient is not interested at this time. Hypokalemia, resolved - Continue to monitor Patient left AMA - please see nursing notes below User: Gwen Celestin RN Date: 12/08/16 20:46 Type: Nurse Notes A Note; Entered pt's room pt was in street clothes stating she is ready to leave , Informed pt of physician encouraging her to stay to improve breathing; PT stating she still would like to leave, Informed pt that insurance may not cover stay pt stated "it doesn't matter I do not have insurance anyway." AMA paper signed. PT instructed that leaving AMA could possibly worsen her pneumonia and end up causing a longer hospital stay in the future, increased breathing difficulty and it could ultimately lead to . Pt continued to refuse and signed paper boyfriend at pt's side. IV site removed; Encouraged pt to call PCP in the morning to see about antibiotics; pt left with boyfriend and belongings User: Gwen Celestin RN Date: 12/08/16 20:45 Type: Nurse Notes A Note; call person MD notified regarding pt wanting to sign out AMA MD stated to encouraged pt to stay and would try to get pt to stay for the night to improve breathing and see about discharge tomorrow User: Gwen Celestin RN Date: 12/08/16 20:40 Type: Nurse Notes A Note; Pt rang call caro and stated that she did not feel that she needed to be here any longer she stated that she felt better and wanted to go home. Pt asked, "how do I go about signing out AMA." Informed pt that I would contact the group home paraprofessional physician and see what the MD is recommending. call person note: Notified that patient requesting to sign out AMA. Requested nurse re-iterate to patient risk of being discharged AMA. If she persisted, I would be up to give patient prescriptions to at least hold over until she could see PCP. Notified 5 minutes later that patient had in fact left. Prescriptions were not given as patient no longer in the hospital. Per nurse, AMA form signed. Total Time Spent: Greater than 30 minutes This includes examination of the patient, discharge planning, medication reconciliation, and communication with other providers. (Francia Aggarwal MD) Resident Physician Supervision Note: I was present with Dr. Aggarwal during the history and exam earlier on the day the patient left AMA. Please see separate note from the same date per documentation of examination and plan. As noted above in both the resident physician discharge summary and the nursing notes, the patient requested discharge and left AGAINST MEDICAL ADVICE in rather short time. The patient gave no indication during my visit with her earlier in the day that she was upset with care or had intended to leave the hospital. She gave nursing no discrete reason as to why she needed to leave. Unfortunately, she has no primary care physician; she had indicated to us earlier in the day that when she does go to a doctor she uses the [facility] office in [place]. Documented By: Javier Arias Total Time Spent: Less than 30 minutes (Javier Arias.,D.O.) Discharge Instructions Please refer to the electronic Patient Visit Report (Discharge Instructions) for additional information. (Francia Aggarwal MD) Follow-Up With [facility] within 1 week (Francia Aggarwal MD) Additional Copies To [facility] Resident Tracking Resident Involvement: Resident Care Provided Care Provided: Adult Hospital Medicine (Francia Aggarwal MD)
[2017-04-07] MEDS ORDERED: LAMO25TA PO (09:26)
[2017-04-07] MEDS ORDERED: VNTHFA/IN INH (09:26)
[2017-04-07] MEDS ORDERED: PRLSR20 PO (09:27)
[2017-04-07] MEDS ORDERED: TRAZ100T29 PO (09:27)
[2017-04-07] MEDS ORDERED: FRN PO (09:27)
[2017-04-07] MEDS ORDERED: BUPR75TA20 PO (09:27)
[2017-04-07] MEDS ORDERED: ASCO250T4 PO (09:27)
[2017-04-24] MEDS ORDERED: OXYC-57 PO (13:07)
== END 2016-12-08 21:06 | disposition left against medical advice (07) | DRG 189 ==
LOC: C.EDB 11:06 → C.MS4W 15:29 → ENRESERV 15:42
PROVIDERS: ADMIT Internal Medicine; ATTEND Internal Medicine
DX: J96.01 Acute respiratory failure with hypoxia (principal); J45.901 Unspecified asthma with (acute) exacerbation; Z68.42 Body mass index [BMI] 45.0-49.9, adult; A08.4 Viral intestinal infection, unspecified; E86.0 Dehydration; E87.6 Hypokalemia; I95.9 Hypotension, unspecified; F17.210 Nicotine dependence, cigarettes, uncomplicated; E66.01 Morbid (severe) obesity due to excess calories; Z53.21 Procedure and treatment not carried out due to patient leaving prior to being seen by health care provider; Z88.0 Allergy status to penicillin

== ENCOUNTER → 2017-01-30 | Outpatient (CLI) | payer OTHER ==
[~2017-01-30] MED LIST changes: +ALBU18002 INH; -NCDT14 TD; -ONDA4TAB46 PO
--- NOTE | 2017-01-30 21:49 | DIAGNOSTIC IMAGING REPORT ---
LEFT WRIST MIN 3 VIEWS ROUTINE CLINICAL HISTORY: Left wrist pain status post trauma COMPARISON: None. DISCUSSION: No acute fractures are visualized. There is minimal ulnar minus variance. There is a corticated ossicle at the level of the ulnar styloid. This is felt to be old. IMPRESSION: No acute fractures or dislocations identified. Electronically signed by: Reid Lindsey M.D. 01/30/2017 9:48 PM Dictated Date/Time: 01/30/2017 9:47 PM
== END | disposition home or self-care (01) ==
LOC: C.RAD 21:11
PROVIDERS: ATTEND Physician Assistant Medical
DX: S69.92XA Unspecified injury of left wrist, hand and finger(s), initial encounter (principal); M25.532 Pain in left wrist; X58.XXXA Exposure to other specified factors, initial encounter

== ENCOUNTER 2018-01-25 18:38 | Emergency (ER) | payer OTHER ==
[~2018-01-25] VITALS: Ht 167.6 cm; Wt 150.0 kg
[~2018-01-25 18:38] MED LIST changes: -ALBU18002 INH; +ASCO250T4 PO; +BUPR75TA20 PO; +FRN PO; +LAMO25TA PO; +PRLSR20 PO; +TRAZ100T29 PO; +VNTHFA/IN INH
[2018-01-25 18:48] VITALS: TEMP 36.8; Ht 167.6 cm; Wt 150.0 kg
[2018-01-25] MEDS ORDERED: KETOROLAC TROMETHAMINE 15 MG/ML VIAL IV. STA (19:02)
[2018-01-25] MEDS ORDERED: ALBUT/IPRATROP 3MG/0.5MG NEB 3 ML VIAL INH STA ×2 (19:02→20:04)
[2018-01-25 19:07] VITALS: O2SAT 96
[2018-01-25 19:27] LABS: BASO % 0.2 %; BASO ABS # 0.02 K/uL (0-0.2); EOS % 1.6 %; EOS ABS # 0.15 K/uL (0-0.5); HEMATOCRIT 41.7 % (37-47); HEMOGLOBIN 14.3 g/dL (12.0-16.0); IG# 0.02 K/uL (0.00-0.02); LYMPH % 37.5 %; LYMPH ABS # 3.52 K/uL (1.2-3.4); MEAN CORPUSCULAR HEMOGLOBIN 31.2 pg (25-34); MEAN CORPUSCULAR HGB CONC 34.3 g/dl (32-36); MEAN PLATELET VOLUME 9.7 fL (7.4-10.4); MONO % 8.7 %; MONO ABS # 0.82 K/uL (0.11-0.59); NEUT % 51.8 %; NEUT ABS # 4.86 K/uL (1.4-6.5); PLATELET COUNT 234 K/uL (130-400); RED CELL DISTRIBUTION WIDTH CV 13.3 % (11.5-14.5); RED CELL DISTRIBUTION WIDTH SD 44.1 fL (36.4-46.3); WHITE BLOOD COUNT 9.39 K/uL (4.8-10.8)
--- NOTE | 2018-01-25 19:42 | DIAGNOSTIC IMAGING REPORT ---
SINGLE VIEW CHEST CLINICAL HISTORY: Dyspnea. FINDINGS: An AP, portable, upright chest radiograph is compared to study dated 12/08/2016. The examination is degraded by portable technique and patient rotation. The cardiomediastinal silhouette is unremarkable. The lungs and pleural spaces are clear. No pneumothorax is seen. The bony thorax is grossly intact. IMPRESSION: No active disease in the chest. Electronically signed by: Jj Kaplan M.D. 01/25/2018 7:41 PM Dictated Date/Time: 01/25/2018 7:40 PM
[2018-01-25] MEDS ORDERED: IUD'IUD IU (19:54)
[2018-01-25 20:00] LABS: ALBUMIN 3.6 gm/dl (3.4-5.0); ALKALINE PHOSPHATASE 95 U/L (45-117); ALT/SGPT 41 U/L (12-78); AST/SGOT 19 U/L (15-37); BLOOD UREA NITROGEN 8 mg/dl (7-18); CALCIUM 8.8 mg/dl (8.5-10.1); CARBON DIOXIDE 26 mmol/L (21-32); CREATININE 0.77 mg/dl (0.60-1.20); GLUCOSE 95 mg/dl (70-99); POTASSIUM 3.4 mmol/L (3.5-5.1); SODIUM 138 mmol/L (136-145); TOTAL PROTEIN 7.7 gm/dl (6.4-8.2)
[2018-01-25] MEDS ORDERED: DEXAMETHASONE INJ 10 MG in SYRINGE 0 ML IV STA (20:04)
[2018-01-25] MEDS ORDERED: ALBUTEROL HFA 8 GM INHALER INH ONE (20:15)
[2018-01-25 20:30] VITALS: BP 164/86; PULSE 85; O2SAT 98
--- NOTE | 2018-01-25 23:24 | EMERGENCY ROOM VISIT NOTE ---
History Report prepared by Griselda: Iliana Bronson Under the Supervision of: Dr. Dejon Menezes M.D. First contact with patient: 18:54 Chief Complaint: CARDIAC ASSESSMENT Stated Complaint: CHEST/RIB/BACK PAIN EVERYTIME COUGH AND BREATHE History of Present Illness The patient is a 22 year old female who presents to the Emergency Room with complaints of worsening chest pain that started last week. The patient describes the pain as a burning in her neck and sharpness and tightness in her chest. She states that she took Naproxen yesterday for her pain. She notes that the pain is exacerbated with coughing or deep breathing. The patient complains of chest pain, back pain, rib pain, hot and cold flashes, and a cough. The patient denies abdominal pain, leg swelling, leg pain, and rashes. The patient notes that she has asthma and uses an inhaler, although it did not help her symptoms. She notes that she had pneumonia last year. She notes that she used to have hypertension, but it has since resolved. The patient notes that she has a Mirena implant. The patient denies recent falls, sick family members, and travel. She notes that she does smoke. The patient denies drinking. 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 Source of History: patient Onset: Last week Position: chest Quality: sharp Timing: worsening Modifying Factors (Worsening): breathing, other (coughing) Modifying Factors (Relieving): other (Naproxen) Associated Symptoms: + cough, + back pain, No abdominal pain, No rash Review of Systems See HPI for pertinent positives and negatives. A total of ten systems were reviewed and were otherwise negative. Past Medical & Surgical Medical Problems: (1) Morbid obesity (2) Oligohydramnios antepartum (3) labor Family History Patient reports no known family medical history. 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 Oropharynx unremarkable. EYES: Normal conjunctiva. Sclera non-icteric. NECK: Supple. No nuchal rigidity. RESPIRATORY: Mild to moderate expiratory wheeze. Normal respiratory effort. CARDIAC: Normal rate. Normal rhythm. Extremities warm and well perfused. GI: Soft, non-distended. No tenderness to palpation. No rebound or guarding. No masses. RECTAL: Deferred. MUSCULOSKELETAL: Atraumatic. Left upper chest wall tenderness. LOWER EXTREMITIES: Calves are equal size bilaterally and non-tender. No edema NEURO: Normal sensorium. No sensory or motor deficits noted. No facial droop. SKIN: Warm and dry. No rash or jaundice noted. Medical Decision & Procedures ER Provider Diagnostic Interpretation: Radiology results as stated below per my review and radiologist interpretation: SINGLE VIEW CHEST CLINICAL HISTORY: Dyspnea. FINDINGS: An AP, portable, upright chest radiograph is compared to study dated 12/08/2016. The examination is degraded by portable technique and patient rotation. The cardiomediastinal silhouette is unremarkable. The lungs and pleural spaces are clear. No pneumothorax is seen. The bony thorax is grossly intact. IMPRESSION: No active disease in the chest. Electronically signed by: Jj Kaplan M.D. 01/25/2018 7:41 PM Dictated Date/Time: 01/25/2018 7:40 PM Laboratory Results 01/25/18 19:16 Red Blood Count 4.58, Mean Corpuscular Volume 91.0, Mean Corpuscular Hemoglobin 31.2, Mean Corpuscular Hemoglobin Concent 34.3, Mean Platelet Volume 9.7, Neutrophils (%) (Auto) 51.8, Lymphocytes (%) (Auto) 37.5, Monocytes (%) (Auto) 8.7, Eosinophils (%) (Auto) 1.6, Basophils (%) (Auto) 0.2, Neutrophils # (Auto) 4.86, Lymphocytes # (Auto) 3.52, Monocytes # (Auto) 0.82, Eosinophils # (Auto) 0.15, Basophils # (Auto) 0.02 01/25/18 19:16 Test 01/25/18 19:16 White Blood Count 9.39 K/uL (4.8-10.8) Red Blood Count 4.58 M/uL (4.2-5.4) Hemoglobin 14.3 g/dL (12.0-16.0) Hematocrit 41.7 % (37-47) Mean Corpuscular Volume 91.0 fL (80-100) Mean Corpuscular Hemoglobin 31.2 pg (25-34) Mean Corpuscular Hemoglobin Concent 34.3 g/dl (32-36) Platelet Count 234 K/uL (130-400) Mean Platelet Volume 9.7 fL (7.4-10.4) Neutrophils (%) (Auto) 51.8 % Lymphocytes (%) (Auto) 37.5 % Monocytes (%) (Auto) 8.7 % Eosinophils (%) (Auto) 1.6 % Basophils (%) (Auto) 0.2 % Neutrophils # (Auto) 4.86 K/uL (1.4-6.5) Lymphocytes # (Auto) 3.52 K/uL (1.2-3.4) Monocytes # (Auto) 0.82 K/uL (0.11-0.59) Eosinophils # (Auto) 0.15 K/uL (0-0.5) Basophils # (Auto) 0.02 K/uL (0-0.2) RDW Standard Deviation 44.1 fL (36.4-46.3) RDW Coefficient of Variation 13.3 % (11.5-14.5) Immature Granulocyte % (Auto) 0.2 % Immature Granulocyte # (Auto) 0.02 K/uL (0.00-0.02) D-Dimer 430 ug/L FEU (0-500) Anion Gap 6.0 mmol/L (3-11) Est Creatinine Clear Calc Drug Dose 169.9 ml/min Estimated GFR () 125.3 Estimated GFR (Non- 108.1 BUN/Creatinine Ratio 10.1 (10-20) Calcium Level 8.8 mg/dl (8.5-10.1) Total Bilirubin 0.1 mg/dl (0.2-1) Aspartate Amino Transf (AST/SGOT) 19 U/L (15-37) Alanine Aminotransferase (ALT/SGPT) 41 U/L (12-78) Alkaline Phosphatase 95 U/L (45-117) Troponin I < 0.015 ng/ml (0-0.045) Total Protein 7.7 gm/dl (6.4-8.2) Albumin 3.6 gm/dl (3.4-5.0) Globulin 4.1 gm/dl (2.5-4.0) Albumin/Globulin Ratio 0.9 (0.9-2) Human Chorionic Gonadotropin, Qual NEG (NEG) Laboratory results reviewed by me Medications Administered Medications (Trade) Dose Ordered Sig/Dung Route Start Time Stop Time Status Last Admin Dose Admin Albuterol/ Ipratropium (Duoneb) 3 ml ONE STAT INH 01/25/18 19:02 01/25/18 19:03 DC 01/25/18 19:18 3 ML Ketorolac Tromethamine (Toradol Inj) 15 mg ONE STAT IV. 01/25/18 19:02 01/25/18 19:03 DC 01/25/18 19:18 15 MG Dexamethasone Sodium Phosphate 10 mg/Syringe 2.5 ml @ 1 mls/min ONE STAT IV 01/25/18 20:04 01/25/18 20:07 DC 01/25/18 20:29 1 MLS/MIN Albuterol (Ventolin Hfa Inhaler) 2 puffs NOW ONCE INH 01/25/18 20:15 01/25/18 20:16 DC 01/25/18 20:30 2 PUFFS Albuterol/ Ipratropium (Duoneb) 3 ml ONE STAT INH 01/25/18 20:04 01/25/18 20:07 DC 01/25/18 20:29 3 ML ECG Per My Interpretation Indication: chest pain Rate (beats per minute): 95 Rhythm: normal sinus Findings: other (Normal intervals, axis, no ST segment elevation or depression. ) Change: no significant change Change: No significant change from 04/07/17. ED Course 1856: The patient was evaluated in room C3. A complete history and physical exam was performed. 1901: Ordered Toradol Inj 15 mg IV, Duoneb 3 ml INH. 2004: Ordered Duoneb 3 ml INH, Dexamethasone Sodium Phosphate 10 mg/Syring 2.5 ml @ 1 mls/min IV. 2015: Ordered Albuterol 2 puffs IHN. 2020: I reevaluated the patient. Discussed results and discharge instructions: she verbalized understanding and agreement. The patient is ready for discharge. Medical Decision Differential diagnosis: Etiologies such as infections, reactive airway disease, pneumonia, pneumothorax , COPD, CHF, cardiac ischemia, pulmonary embolism, musculoskeletal, gastrointestinal, as well as others were entertained. Patient presents with several days of pleuritic left-sided chest pain. Mild shortness of breath. History of asthma inhaler minimal improvement. No fevers. No productive cough. No trauma. No CPUs. No recent travel or leg EKG shows no ischemic changes her troponin was sent but it is cardiac. Doubt dissection. D-dimer was sent lower suspicion for PE. D-dimer was negative. Chest x-ray without pneumonia. Likely asthma exacerbation with increased work of breathing causing her chest wall pain. Does not seem gastric in nature. Blood work is unremarkable. Some improvement after treatment and given a additional DuoNeb here and a dose of steroids. New inhaler given for home. Recommend the use of NSAIDs to help with pain. Feel she is stable for discharge and outpatient follow-up. Discussed return precautions. Patient presents with several days of pleuritic left-sided chest pain. Mild shortness of breath. History of asthma inhaler minimal improvement. No fevers. No productive cough. No trauma. No CPUs. No recent travel or leg EKG shows no ischemic changes her troponin was sent but it is cardiac. Doubt dissection. D- dimer was sent lower suspicion for PE. D-dimer was negative. Chest x-ray without pneumonia. Likely asthma exacerbation with increased work of breathing causing her chest wall pain. Does not seem gastric in nature. Blood work is unremarkable. Some improvement after treatment and given a additional DuoNeb here and a dose of steroids. New inhaler given for home. Recommend the use of NSAIDs to help with pain. Feel she is stable for discharge and outpatient follow-up. Discussed return precautions. Medication Reconcilliation Current Medication List: was personally reviewed by me The scribe's documentation has been prepared under my direction and personally reviewed by me in its entirety. I confirm that the note above accurately reflects all work, treatment, procedures, and medical decision making performed by me. Blood Pressure Screening Patient's blood pressure: Elevated blood pressure Blood pressure disposition: Elevated BP felt to be situational Impression Primary Impression: Asthma exacerbation Additional Impression: Chest wall pain Scribe Attestation The scribe's documentation has been prepared under my direction and personally reviewed by me in its entirety. I confirm that the note above accurately reflects all work, treatment, procedures, and medical decision making performed by me. Departure Information Dispostion Home / Self-Care Referrals Manohar Higgins M.D. ([facility]) (PCP) Forms IMPORTANT VISIT INFORMATION Patient Instructions My [facility] [employer] Additional Instructions Please utilize her inhaler at home to help with symptoms along with naproxen. If you begin develop other new symptoms including but not limited to fever, cough, or different pain please return for reevaluation. Your symptoms should improve over the next several days. Would recommend follow-up with regular doctor next 3-5 days. Please maintain hydration. Problem Qualifiers Primary Impression: Asthma exacerbation Asthma severity: moderate Asthma persistence: unspecified Qualified Codes: J45.901 - Unspecified asthma with (acute) exacerbation
== END 2018-01-25 21:00 | disposition home or self-care (01) ==
LOC: C.EDB 18:40 → C.EDC 21:00
DX: J45.901 Unspecified asthma with (acute) exacerbation (principal); R07.89 Other chest pain; F17.200 Nicotine dependence, unspecified, uncomplicated; Z79.51 Long term (current) use of inhaled steroids; Z88.0 Allergy status to penicillin